=== PATIENT | female | born 1940 | race Hispanic/Latino ===

== ENCOUNTER 2021-02-22 16:47 | Emergency (ER) | payer MEDICARE ==
--- NOTE | 2021-02-22 17:41 | Emergency Department Report ---
ED Fall HPI - General Chief Complaint: Fall Stated Complaint: FALL Time Seen by Provider: 02/22/21 17:31 Source: patient, EMS Mode of arrival: Stretcher Limitations: Other (Alzheimer's dementia) - History of Present Illness Initial Comments: 80-year-old female the past medical history of Alzheimer's dementia, vertigo, sinusitis, and Alzheimer's disease with history of previous back and neck surgery presents to the hospital planing of fall while walking up the stairs. Fall was unwitnessed but her heard patient fell. When he immediately respond to her she was conscious. Patient has chronic memory problems and is alert and oriented to self and place only secondary to Alzheimer's disease. Patient does remember falling but does not remember when she fell with the details surrounding the fall. She presents with a hematoma to the posterior scalp. She denies headache, neck pain, back pain chest pain, shortness of breath, abdominal pain, nausea, vomiting, dysuria, focal weakness, or focal numbness. [facility] [phone] SPOUSE - Related Data Home Medications Medication Instructions Recorded Confirmed Last Taken Anastrozole (Nf) [Arimidex (Nf)] 1 mg PO DAILY 08/06/13 08/06/13 08/05/13 atenoloL [Tenormin] 50 mg PO DAILY 08/06/13 08/06/13 08/06/13 hydroCHLOROthiazide [Hctz] 12.5 mg PO QDAY 08/06/13 08/06/13 08/06/13 Previous Rx's Medication Instructions Recorded Last Taken Type Fluticasone Propionate [Flonase] 16 gm NS QAM #1 spray.susp 08/06/13 Unknown Rx Meclizine [Antivert] 25 mg PO TID PRN #15 tablet 08/06/13 Unknown Rx Allergies Allergy/AdvReac Type Severity Reaction Status Date / Time Unable to Assess Allergy Verified 08/06/13 11:41 ED Review of Systems ROS: Stated complaint: FALL Other details as noted in HPI Comment: All other systems reviewed and negative ED Past Medical Hx - Past Medical History Hx Hypertension: Yes Additional medical history: breast cancer , vertigo, sinusitis, alzheimers - Surgical History Additional Surgical History: Neck and back surgery, cholecystectomy - Social History Smoking Status: Never Smoker - Medications Home Medications: Home Medications Medication Instructions Recorded Confirmed Last Taken Type Anastrozole (Nf) [Arimidex (Nf)] 1 mg PO DAILY 08/06/13 08/06/13 08/05/13 History Fluticasone Propionate [Flonase] 16 gm NS QAM #1 spray.susp 08/06/13 Unknown Rx Meclizine [Antivert] 25 mg PO TID PRN #15 tablet 08/06/13 Unknown Rx atenoloL [Tenormin] 50 mg PO DAILY 08/06/13 08/06/13 08/06/13 History hydroCHLOROthiazide [Hctz] 12.5 mg PO QDAY 08/06/13 08/06/13 08/06/13 History ED Physical Exam - General Limitations: No Limitations - Other Other exam information: General: No acute distress Head: Posterior scalp hematoma Eyes: normal appearance ENT: Moist mucous membranes Neck: Normal appearance, no midline tenderness Chest: Clear to auscultation bilaterally CV: Regular rate and rhythm Abdomen: Soft, normal bowel sounds, nontender, nondistended, no rebound or guarding Back: Normal inspection, no midline or paraspinal muscle tenderness Extremity: Normal inspection, full range of motion Neuro: Alert O x self, hospital, but not to year, no facial asymmetry, speech clear, no gross motor sensory deficit, [id number] function and Psych: Appropriate behavior Skin: No rash ED Course Vital Signs 02/22/21 02/22/21 02/22/21 17:33 17:42 17:45 Temperature 98.7 F Pulse Rate 82 70 Respiratory 18 11 L Rate Blood Pressure 176/80 Blood Pressure 139/74 [Left] O2 Sat by Pulse 100 100 99 Oximetry 02/22/21 02/22/21 02/22/21 18:00 18:15 18:31 Temperature Pulse Rate 64 75 Respiratory 9 L 14 Rate Blood Pressure 142/66 146/70 146/70 Blood Pressure [Left] O2 Sat by Pulse 100 97 Oximetry 02/22/21 02/22/21 02/22/21 18:45 19:01 19:15 Temperature Pulse Rate 78 78 71 Respiratory 12 18 13 Rate Blood Pressure 142/71 146/70 156/79 Blood Pressure [Left] O2 Sat by Pulse 98 100 100 Oximetry 02/22/21 02/22/21 02/22/21 19:31 19:45 20:02 Temperature Pulse Rate 75 83 80 Respiratory 18 18 18 Rate Blood Pressure 144/73 145/71 171/87 Blood Pressure [Left] O2 Sat by Pulse 99 100 Oximetry 02/22/21 02/22/21 02/22/21 20:15 20:31 20:45 Temperature Pulse Rate 85 102 H 99 H Respiratory 20 22 26 H Rate Blood Pressure 171/87 171/87 165/73 Blood Pressure [Left] O2 Sat by Pulse 98 94 84 Oximetry 02/22/21 02/22/21 02/22/21 21:01 21:15 21:37 Temperature Pulse Rate 109 H 109 H Respiratory 24 26 H 17 Rate Blood Pressure 165/73 158/59 154/78 Blood Pressure [Left] O2 Sat by Pulse 91 88 Oximetry 02/22/21 21:45 Temperature Pulse Rate 91 H Respiratory 12 Rate Blood Pressure 150/78 Blood Pressure [Left] O2 Sat by Pulse 96 Oximetry - Reevaluation(s) Reevaluation #1: 02/22/21 21:31 Case discussed with patient's and informed that her work-up is unremarkable and she will be discharged from the ER. Patient has had gait steady gait while here in the ER ED Medical Decision Making - Lab Data Result diagrams: 02/22/21 17:41 02/22/21 17:41 Lab Results 02/22/21 02/22/21 02/22/21 Range/Units 17:40 17:41 17:41 WBC 4.7 (4.5-11.0) K/mm3 RBC 4.16 (3.65-5.03) M/mm3 Hgb 13.2 (10.1-14.3) gm/dl Hct 39.3 (30.3-42.9) % MCV 94 (79-97) fl MCH 32 (28-32) pg MCHC 34 (30-34) % RDW 13.1 L (13.2-15.2) % Plt Count 146 (140-440) K/mm3 Lymph % (Auto) 10.4 L (13.4-35.0) % [place] % (Auto) 5.7 (0.0-7.3) % Eos % (Auto) 1.3 (0.0-4.3) % Baso % (Auto) 0.3 (0.0-1.8) % Lymph # (Auto) 0.5 L (1.2-5.4) K/mm3 [place] # (Auto) 0.3 (0.0-0.8) K/mm3 Eos # (Auto) 0.1 (0.0-0.4) K/mm3 Baso # (Auto) 0.0 (0.0-0.1) K/mm3 Seg Neutrophils % 82.3 H (40.0-70.0) % Seg Neutrophils # 3.8 (1.8-7.7) K/mm3 Sodium 140 (137-145) mmol/L Potassium 3.5 L (3.6-5.0) mmol/L Chloride 102.5 (98-107) mmol/L Carbon Dioxide 29 (22-30) mmol/L Anion Gap 12 mmol/L BUN 12 (7-17) mg/dL Creatinine 0.4 L (0.6-1.2) mg/dL Estimated GFR > 60 ml/min BUN/Creatinine Ratio 30 % Glucose 101 H (65-100) mg/dL POC Glucose 93 (70-105) mg/dL Calcium 8.6 (8.4-10.2) mg/dL Urine Color (Yellow) Urine Turbidity (Clear) Urine pH (5.0-7.0) Ur Specific [place] (1.003-1.030) Urine Protein (Negative) mg/dL Urine Glucose (UA) (Negative) mg/dL Urine Ketones (Negative) mg/dL Urine Blood (Negative) Urine Nitrite (Negative) Ur Reducing Substances Urine Bilirubin (Negative) Urine Ictotest Urine Urobilinogen (<2.0) mg/dL Ur Leukocyte Esterase (Negative) Urine WBC (Auto) (0.0-6.0) /HPF Urine RBC (Auto) (0.0-6.0) /HPF U Epithel Cells (Auto) (0-13.0) /HPF Urine Mucus /HPF 02/22/ Range/Units 20:05 WBC (4.5-11.0) K/mm3 RBC (3.65-5.03) M/mm3 Hgb (10.1-14.3) gm/dl Hct (30.3-42.9) % MCV (79-97) fl MCH (28-32) pg MCHC (30-34) % RDW (13.2-15.2) % Plt Count (140-440) K/mm3 Lymph % (Auto) (13.4-35.0) % [place] % (Auto) (0.0-7.3) % Eos % (Auto) (0.0-4.3) % Baso % (Auto) (0.0-1.8) % Lymph # (Auto) (1.2-5.4) K/mm3 [place] # (Auto) (0.0-0.8) K/mm3 Eos # (Auto) (0.0-0.4) K/mm3 Baso # (Auto) (0.0-0.1) K/mm3 Seg Neutrophils % (40.0-70.0) % Seg Neutrophils # (1.8-7.7) K/mm3 Sodium (137-145) mmol/L Potassium (3.6-5.0) mmol/L Chloride (98-107) mmol/L Carbon Dioxide (22-30) mmol/L Anion Gap mmol/L BUN (7-17) mg/dL Creatinine (0.6-1.2) mg/dL Estimated GFR ml/min BUN/Creatinine Ratio % Glucose (65-100) mg/dL POC Glucose (70-105) mg/dL Calcium (8.4-10.2) mg/dL Urine Color Yellow (Yellow) Urine Turbidity Slightly-cloudy (Clear) Urine pH 8.0 H (5.0-7.0) Ur Specific [place] 1.008 (1.003-1.030) Urine Protein <15 mg/dl (Negative) mg/dL Urine Glucose (UA) Neg (Negative) mg/dL Urine Ketones Tr (Negative) mg/dL Urine Blood Sm (Negative) Urine Nitrite Neg (Negative) Ur Reducing Substances Not Reportable Urine Bilirubin Neg (Negative) Urine Ictotest Not Reportable Urine Urobilinogen < 2.0 (<2.0) mg/dL Ur Leukocyte Esterase Neg (Negative) Urine WBC (Auto) 1.0 (0.0-6.0) /HPF Urine RBC (Auto) 3.0 (0.0-6.0) /HPF U Epithel Cells (Auto) < 1.0 (0-13.0) /HPF Urine Mucus Few /HPF - EKG Data -: EKG Interpreted by [facility] EKG shows normal: sinus rhythm, ST-T waves (no stemi) Rate: normal (63) - EKG Data When compared to previous EKG there are: previous EKG unavailable - Radiology Data Radiology results: report reviewed Exam: CT cervical spine History: fall, head injury; Technique: Contiguous thin cut axial images obtained through the cervical spine. Sagittal and coronal reconstructions performed by the technologist. All CT scans at this location are performed using CT dose reduction for ALARA by means of automated exposure control. Findings: No priors. There is no evidence of fracture or traumatic subluxation. Vertebral bodies are normal in height and alignment. Intervertebral disc spaces: C2-C3: Normal C3-C4: Disc osteophyte complex more towards the left side; minimal left foraminal stenoses Anterior cervical disc fusion from C4 to C7; normal neural foramina at C4-C5 and C6-C7 disc levels; minimal foraminal narrowing at C6-C7 disc level C7-T1, minimal anterolisthesis No significant degenerative change seen in the uncinate or facet joints. No si gnificant canal stenosis or osseous foraminal narrowing. Larynx appears abnormal. Right true vocal cord is centralized; sclerotic right arytenoid; this has to be further evaluated. Impression: No signs of acute bony trauma to the cervical spine. NONENHANCED CT SCAN OF THE HEAD: INDICATION / CLINICAL INFORMATION: 80 years Female; MAIN. Fall; head injury TECHNIQUE: Routine CT head without contrast. All CT scans at this location are performed using CT dose reduction for ALARA by means of automated exposure control. COMPARISON: None. FINDINGS: BRAIN / INTRACRANIAL CONTENTS: No intracranial sequela from the trauma; subtle scalp hematoma in the left occipital region; no air-fluid level in the visualized portions of the paranasal sinuses No acute hemorrhage, mass effect, midline shift, hydrocephalus, or acute, large territorial infarct. Confluent periventricular white matter low-attenuation areas along with focal white matter low-attenuation lesions due to chronic small vessel disease; age-appropriate cortical involution; moderate volume loss in the hippocampi CRANIOCERVICAL JUNCTION: No significant abnormality. ORBITS: No significant abnormality of visualized orbits. SINUSES / MASTOIDS: Mucosal thickening in the left sphenoid sinus ADDITIONAL FINDINGS: None. IMPRESSION: No intracranial sequela from the trauma - Medical Decision Making 80-year-old female with Alzheimer's dementia presents to the hospital after fall. No LOC reported. CT head, cervical spine, CBC, BMP, UA unremarkable with exception of mild hypokalemia. P.o. potassium provided. Patient did have increased heart rate with standing and therefore received 1 L normal saline. Patient has a scalp hematoma but otherwise has no complaints. She will be sent home. Has been informed of patient's work-up and plan for discharge Critical Care Time: No Critical care attestation.: If time is entered above; I have spent that time in minutes in the direct care of this critically ill patient, excluding procedure time. ED Disposition Clinical Impression: Fall, Dementia, Hematoma of scalp, Upper respiratory infection, Hypokalemia Disposition: DC- TO HOME OR SELFCARE Is pt being admited?: No Does the pt Need Aspirin: No Condition: Stable Instructions: Facial or Scalp Contusion, [id number], Dementia, [id number] Additional Instructions: Follow-up with your doctor or doctor/clinic provided. Return if symptoms worsen as indicated by your discharge instructions. Referrals: PRIMARY CARE, [Primary Care Provider] - 3-5 Days Time of Disposition: 22:43
[2021-02-22 18:11] LABS: Blood Urea Nitrogen 12 mg/dL (7-17); Calcium 8.6 mg/dL (8.4-10.2); Hemolysis Index 9
[2021-02-22 18:13] LABS: BUN/Creatinine Ratio 30
[2021-02-22 18:19] LABS: Basophils % (Auto) 0.3 % (0.0-1.8); Eosinophils # (Auto) 0.1 K/mm3 (0.0-0.4); Eosinophils % (Auto) 1.3 % (0.0-4.3); Hematocrit 39.3 % (30.3-42.9); Hemoglobin 13.2 gm/dl (10.1-14.3); Lymphocytes # (Auto) 0.5 K/mm3 (1.2-5.4); Lymphocytes % (Auto) 10.4 % (13.4-35.0); Mean Corpuscular HGB Conc 34 % (30-34); Mean Corpuscular Volume 94 fl (79-97); Monocytes # (Auto) 0.3 K/mm3 (0.0-0.8); Monocytes % (Auto) 5.7 % (0.0-7.3); Platelet Count 146 K/mm3 (140-440); Red Blood Count 4.16 M/mm3 (3.65-5.03); Red Cell Distribution Width 13.1 % (13.2-15.2)
[2021-02-22] MEDS ORDERED: SODIUM CHLORIDE 0.9% 1000 ML 1,000 ML IV ONE (18:39)
--- NOTE | 2021-02-22 18:44 | Cat Scan Report ---
NONENHANCED CT SCAN OF THE HEAD: INDICATION / CLINICAL INFORMATION: 80 years Female; MAIN. Fall; head injury TECHNIQUE: Routine CT head without contrast. All CT scans at this location are performed using CT dos e reduction for ALARA by means of automated exposure control. COMPARISON: None. FINDINGS: BRAIN / INTRACRANIAL CONTENTS: No intracranial sequela from the trauma; subtle scalp hematoma in the left occipital region; no air-fluid level in the visualized portions of the paranasal sinuses No acute hemorrhage, mass effect, midline shift, hydrocephalus, or acute, large territorial infarct. Confluent periventricular white matter low-attenuation areas along with focal white matter low-atten uation lesions due to chronic small vessel disease; age-appropriate cortical involution; moderate vol ume loss in the hippocampi CRANIOCERVICAL JUNCTION: No significant abnormality. ORBITS: No significant abnormality of visualized orbits. SINUSES / MASTOIDS: Mucosal thickening in the left sphenoid sinus ADDITIONAL FINDINGS: None. IMPRESSION: No intracranial sequela from the trauma Signer Name: Danita Farfan MD Signed: 02/22/2021 6:39 PM Workstation Name: [id number]
--- NOTE | 2021-02-22 18:51 | Cat Scan Report ---
Exam: CT cervical spine History: fall, head injury; Technique: Contiguous thin cut axial images obtained through the cervical spine. Sagittal and christine l reconstructions performed by the technologist. All CT scans at this location are performed using CT dose reduction for ALARA by means of automated exposure control. Findings: No priors. There is no evidence of fracture or traumatic subluxation. Vertebral bodies are normal in height and alignment. Intervertebral disc spaces: C2-C3: Normal C3-C4: Disc osteophyte complex more towards the left side; minimal left foraminal stenoses Anterior cervical disc fusion from C4 to C7; normal neural foramina at C4-C5 and C6-C7 disc levels; m inimal foraminal narrowing at C6-C7 disc level C7-T1, minimal anterolisthesis No significant degenerative change seen in the uncinate or facet joints. No significant canal stenosi s or osseous foraminal narrowing. Larynx appears abnormal. Right true vocal cord is centralized; sclerotic right arytenoid; this has to be further evaluated. Impression: No signs of acute bony trauma to the cervical spine. Signer Name: Danita Farfan MD Signed: 02/22/2021 6:46 PM Workstation Name: [id number]
[2021-02-22 20:38] LABS: Mucus,Urine FEW /HPF
[2021-02-22 20:39] LABS: Bilirubin,Urine NEG (Negative); Blood,Urine SM (Negative); Color,Urine Yellow (Yellow); Protein,Urine <15 mg/dL mg/dL (Negative); Urobilinogen,Urine < 2.0 mg/dL (<2.0)
[2021-02-22] MEDS ORDERED: POTASSIUM CHLORIDE ER 20 MEQ TAB PO ONE (21:20)
[2021-02-22 21:49] VITALS: BP 150/78
--- NOTE | 2021-02-24 11:10 | Electrocardiograph Report ---
[facility] Test Date: 2021-02-22 Test Time: 17:55:53 Pat Name: KEVON DONOVAN Department: Room: Gender: F Aircraft Technician: YASMINE : 1940 Requested By: JACK HEART Order Number: [id number] Reading MD: Ananth Braswell Measurements Intervals [place] Rate: 63 P: 63 OR: 151 QRS: 33 QRSD: 73 T: 59 QT: 414 QTc: 423 Interpretive Statements Sinus rhythm Probable left atrial enlargement No previous ECG available for comparison Electronically Signed On 02-24-2021 8:09:46 PDT by Ananth Braswell
== END 2021-02-22 23:45 | disposition home or self-care (01) ==
LOC: ED 16:47
DX: S00.03XA Contusion of scalp, initial encounter (principal); F03.90 Unspecified dementia, unspecified severity, without behavioral disturbance, psychotic disturbance, mood disturbance, and anxiety; J06.9 Acute upper respiratory infection, unspecified; E87.6 Hypokalemia; I10 Essential (primary) hypertension; Z90.49 Acquired absence of other specified parts of digestive tract; Z79.899 Other long term (current) drug therapy; X58.XXXA Exposure to other specified factors, initial encounter; Y93.89 Activity, other specified; Y92.89 Other specified places as the place of occurrence of the external cause; Y99.8 Other external cause status
CPT/HCPCS: 36415; 70450; 72125; 80048; 81001; 82962; 85025; 93005; 96360; 99284; J7030